=== PATIENT | male | born 1960 | race Caucasian/White ===

== ENCOUNTER → 2016-08-26 | Outpatient (CLI) | payer OTHER ==
[~2016-08-26] MED LIST: ADVIL200 M1 PO; ALLEGRA ALLERG180 MG PO; BENZTROPINE ME0.5 MG PO; CALCIUM 600 +1 EAC1 PO; CENTRUM SILVER1 EAC2 PO; CLONAZEPAM 1 MG1 M1 PO; FLONASE 0.05%50 MCG NASAL; LAMOTRIGINE150 MG PO; LEVOTHYROXIN0.025 MG PO; NORCO 5-325 TA1 EACH PO; RHINOCORT AQUA8.6 GM; SALINE NASAL SP30 ML NS; ZOCOR 20 MG TAB20 M1 PO
== END ==
LOC: RAD 08:32
DX: R10.9 Unspecified abdominal pain (principal)